=== PATIENT | male | born 1990 | race Hispanic/Latino ===

== ENCOUNTER 2016-07-29 12:30 | Emergency (ER) | payer SELFPAY ==
[2016-07-29] MEDS ORDERED: AZITHROMYCIN 250 MG TABLET PO ONE (13:24)
--- NOTE | 2016-07-29 13:25 | ERNOTE ---
Medical Problem HPI - Narrative Date of Service: 07/29/16 - General Chief Complaint: Flu Symptoms Time Seen by Provider: 07/29/16 12:54 Source: patient Exam Limitations: no limitations - Patient speaks [place] which is not a languege barrier for me. - Immun/Allergies/Home Medications Allergies/Adverse Reactions: Allergies No Known Allergies Allergy (Unverified 07/29/16 12:46) Home Medications: HOME MEDICATIONS Azithromycin [Zithromax] 500 mg PO NOW #6 tab 07/29/16 [Last Taken Unknown] - History of Present History Narrative: Patient comes due to myalgia, fever, coughing, and sore throat since last Tuesday. Timing: constant Severity: moderate Modifying Factors - (Improves): Present: rest Modifying Factors - (Worsens): Present: movement Review of Systems - Review of Systems Constitutional: Present: fever, chills, weakness, malaise EYE: Present: no symptoms reported ENT: Present: no symptoms reported Respiratory: Present: cough - Dry Coughing, wheezing Cardiology: Present: no symptoms reported Gastrointestinal/Abdominal: Present: vomiting, diarrhea Genitourinary: Present: no symptoms reported Musculoskeletal: Present: muscle pain Skin: Absent: rash Neurological: Present: no symptoms reported Endocrine: Present: no symptoms reported Hematologic/Lymphatic: Present: no symptoms reported Psych: Present: no symptoms reported - Patient's Past Medical History Patient History - Medical: No pertinent hx Patient History - Cancer: No Hx of Cancer Patient History - Surgical Procedures: No surgical history - Social History Living Situations: home Smoking Status: Never smoker Physical Exam - Physical Exam General Appearance: Present: wd/wn, alert, no apparent distress Ears, Nose, Throat: Present: normal ENT inspection, hearing grossly normal, pharyngeal erythema, pharyngeal swelling. Absent: tonsillar exudate Neck: Present: normal inspection, nontender Respiratory: Present: no accessory muscle use, chest nontender, crackles - sporadic Cardiovascular/Chest: Present: regular rate, rhythm, no murmur, normal peripheral pulses Gastrointestinal/Abdominal: Present: normal bowel sounds, nontender, nondistended, soft, no organomegaly Rectal Exam: Present: nontender, normal rectal tone Male Genitals Exam: Present: normal genitalia, normal prostate, no hernia Back Exam: Present: no CVA tenderness Extremity Exam: Present: normal inspection, non-tender, no edema, normal range of motion Neurological Exam: Present: alert, oriented, normal mood/affect, no motor/ sensory deficits Skin Exam: Present: normal color, warm/dry Lymphatic Exam: Present: no adenopathy ED Progress - Date and Time Seen: Date and Time: 07/29/16 13:21 Patient with no distress. At the moment patient is not toxic. Patient wants PO Tx for his condition. - Results and Orders Patient's Lab Results:: I have reviewed the patient's lab results. Results and Orders: Neg Flu, +Strep - Vital Signs Patient's Vital Signs:: I have reviewed the patient's vital signs. Vital Signs: Vital Signs 07/29/16 12:43 Temperature 36.2 C L Pulse Rate 90 Respiratory 16 Rate Blood Pressure 138/86 O2 Sat by Pulse 96 Oximetry - X-Ray X-Ray #1 X-Ray: chest Interpretation: Interp. by me X-ray Comments: No infiltrates and no consolidates seen on film. - Progress/Reassessment Chief Complaint: Flu Symptoms Progress:: Improved - Transfer of Care Expected Disposition: Discharge Departure - Departure Clinical Impression: Pharyngitis due to Streptoccus pyogenes Disposition: Home self-care Condition: Stable Instructions: Sore Throat, [employer]-Nude Print Language: [place] Prescriptions: Azithromycin [Zithromax] 500 mg PO NOW #6 tab
[2016-07-29] MEDS ORDERED: AZITHROMYCIN 250 MG TABLET ONE (13:28)
[2016-07-29 13:45] VITALS: BP 151/92
== END 2016-07-29 13:40 | disposition home or self-care (01) ==
LOC: ER 12:30
DX: J02.0 Streptococcal pharyngitis (principal)